=== PATIENT | female | born 1985 | race Caucasian/White ===

== ENCOUNTER 2016-10-22 18:59 | Emergency (ER) | payer OTHER ==
[2016-10-22 19:00] VITALS: BMI 35.6
[2016-10-22 19:18] VITALS: O2SAT 100
[2016-10-22] MEDS ORDERED: DiphenhydrAMINE 50 mg/ml Inj IVP STA (19:43)
--- NOTE | 2016-10-22 19:44 | C.PDOC ---
History Of Present Illness 30 year old female with a Hx of morbid obesity presents to the ER with a complaint of chest pain and headache since yesterday; associated with 1 episode of vomiting. Patient states the pain worsens with deep inspiration; denies fever , cough, abdominal pain, urinray changes. or other associated complaints. Time Seen by Provider: 10/22/16 19:35 Chief Complaint (Nursing): Chest Pain History Per: Patient History/Exam Limitations: no limitations Onset/Duration Of Symptoms: Days Current Symptoms Are (Timing): Still Present Associated Symptoms: Other (Vomiting). denies: Nausea, Dyspnea Exacerbating Factors: Deep Breathing Alleviating Factors: None Recent travel outside of the [place]: No Past Medical History Reviewed: Historical Data, Nursing Documentation, Vital Signs Vital Signs: Last Vital Signs Temp 98.9 F 10/22/16 21:25 Pulse 67 10/22/16 21:25 Resp 17 10/22/16 21:25 BP 144/79 10/22/16 21:25 Pulse Ox 100 10/22/16 21:25 - Medical History PMH: Asthma, Depression - [facility] Procedures INJECT/INFUSE NEC (05/19/14) LOW CERVICAL (09/24/12) Family History: States: Unknown Family Hx - Social History Hx Tobacco Use: No Hx Alcohol Use: No Hx Substance Use: No - Immunization History Hx Tetanus Toxoid Vaccination: No Hx Influenza Vaccination: No Hx Pneumococcal Vaccination: No Review Of Systems Constitutional: Negative for: Fever, Chills Cardiovascular: Positive for: Chest Pain. Negative for: Palpitations Respiratory: Negative for: Shortness of Breath Gastrointestinal: Positive for: Vomiting. Negative for: Abdominal Pain Neurological: Positive for: Headache Physical Exam - Physical Exam Appears: Non-toxic, No Acute Distress Skin: Normal Color, Warm, Dry Head: Atraumatic, Normacephalic Oral Mucosa: Moist Chest: Symmetrical, No Tenderness Cardiovascular: Rhythm Regular, No Murmur Respiratory: Normal Breath Sounds, No Rales, No Rhonchi, No Wheezing Gastrointestinal/Abdominal: Soft, No Tenderness Neurological/Psych: Oriented x3, Normal Speech, Normal Cognition ED Course And Treatment - Laboratory Results Result Diagrams: 10/22/16 19:52 10/22/16 19:52 ECG: Interpreted By Me, Viewed By Me ECG Rhythm: Sinus Rhythm ECG Interpretation: Normal Interpretation Of ECG: No ST/T changes Rate From EC O2 Sat by Pulse Oximetry: 100 - Radiology CXR: Interpreted by Me, Viewed By Me CXR Interpretation: Yes: No Acute Disease Medical Decision Making Medical Decision Making: Impression: 30 year old female with chest pain Plan: * EKG * Blood work * CXR * Urinalysis * Benadryl * Reglan * * 915: pt reasessed: neuro intact. cxr neg as read by me. no cough, no fever. avila resolved. pt smiling, asking for d/c. ekg unremakrable. dimer neg. stable for outpt management. advise outpt f/u and return precautions. Disposition - Disposition Referrals: Maurizio Villanueva MD [Staff Provider] - Elias Patel MD [Staff Provider] - [facility] [Outside] [facility] [Outside] [facility] [Outside] Disposition: HOME/ ROUTINE Disposition Time: 21:17 Condition: STABLE Additional Instructions: please follow up with clinic and specialists. return to er with worsening symptoms or concerns. Prescriptions: Acetaminophen/Butalbital/Caf [Fioricet] 1 tab PO Q8 PRN #20 tab PRN Reason: Headache Instructions: Chest Pain (ED), Acute Headache (ED) - Clinical Impression Clinical Impression: Chest pain, Headache - Scribe Statement The provider has reviewed the documentation as recorded by the Scribroro Mackay All medical record entries made by the Scribe were at my direction and personally dictated by me. I have reviewed the chart and agree that the record accurately reflects my personal performance of the history, physical exam, medical decision making, and the department course for this patient. I have also personally directed, reviewed, and agree with the discharge instructions and disposition.
[2016-10-22] MEDS ORDERED: DiphenhydrAMINE 50 mg/ml Inj ONE (19:54)
[2016-10-22 19:59] LABS: BASO % 0.3 % (0.0-2.0); EOS # 0.1 K/uL (0.0-0.7); EOS % 0.6 % (0.0-4.0); HEMOGLOBIN 11.7 g/dL (11.0-16.0); LYMPH # 4.2 K/uL (1.0-4.3); LYMPH % 37.2 % (20.0-40.0); MEAN CELL VOLUME 83.8 fL (81.0-99.0); MEAN CORPUSCULAR HEMOGLOBIN 27.5 pg (27.0-31.0); MEAN CORPUSCULAR HGB CONC 32.9 g/dL (33.0-37.0); MEAN PLATELET VOLUME 8.7 fL (7.2-11.7); MONO # 0.5 K/uL (0.0-0.8); MONO % 4.6 % (0.0-10.0); NEUT # 6.4 K/uL (1.8-7.0); NEUT % 57.3 % (50.0-75.0); RBC 4.25 Mil/uL (3.80-5.20); WHITE BLOOD COUNT 11.2 K/uL (4.8-10.8)
[2016-10-22 20:08] LABS: ALBUMIN 4.4 g/dL (3.5-5.0); HCG,QUALITATIVE URINE NEGATIVE (NEGATIVE)
[2016-10-22 20:11] LABS: ALB/GLOB RATIO 1.2 (1.0-2.1); AST/SGOT 21 U/L (14-36); GFR AFRICAN-AMERICAN > 60; GFR NON-AFRICAN AMERICAN > 60; SQUAMOUS EPITHIAL 11 /hpf (0-5); URINE BILIRUBIN NEGATIVE (NEGATIVE); URINE BLOOD 1+ (NEGATIVE); URINE CLARITY Hazy (Clear); URINE COLOR Yellow (YELLOW); URINE GLUCOSE (UA) NORMAL (Normal); URINE LEUKOCYTE ESTERASE NEG Leu/uL (Negative); URINE NITRATE NEGATIVE (NEGATIVE); URINE PROTEIN NEGATIVE (NEGATIVE); URINE UROBILINOGEN NORMAL mg/dL (0.2-1.0)
[2016-10-22 20:12] LABS: ALT/SGPT 20 U/L (9-52); BLOOD UREA NITROGEN 11 mg/dL (7-17); CALCIUM 9.4 mg/dl (8.6-10.4)
[2016-10-22 20:31] LABS: PARTIAL THROMBOPLASTIN TIME 33 SECONDS (21-34); PROTHROMBIN TIME 11.7 SECONDS (9.7-12.2)
[2016-10-22 20:35] LABS: D DIMER < 200 ng/mlDDU (0-243)
[2016-10-22 21:26] VITALS: BP 144/79; PULSE 67; RESP 17; TEMP 98.9
--- NOTE | 2016-10-23 07:38 | RAD ---
PROCEDURE: CHEST RADIOGRAPH, 1 VIEW HISTORY: chest pain COMPARISON: None available. FINDINGS: LUNGS: Mild venous congestion. Mild right hilar prominence. PLEURA: No pneumothorax or pleural fluid seen. CARDIOVASCULAR: Normal. OSSEOUS STRUCTURES: No significant abnormalities. VISUALIZED UPPER ABDOMEN: Normal. OTHER FINDINGS: None. IMPRESSION: Mild venous congestion.
--- NOTE | 2016-10-24 13:32 | CARD ---
APPROVED REPORT EKG Measurement Heart [id number] <Conclusion> Normal sinus rhythm Normal ECG
== END 2016-10-22 21:26 | disposition home or self-care (01) ==
LOC: C.ER 18:59
DX: R07.9 Chest pain, unspecified (principal); R51 Headache
CPT/HCPCS: 71010; 80053; 81001; 84703; 85025; 85378; 85610; 85730; 93005; 96374; 96375; 99284; J1200; J2765

== ENCOUNTER 2017-06-19 08:35 | Day surgery (SDC) | payer OTHER ==
[2017-06-19] MEDS ORDERED: Bupivacaine HCl 0.25% PF (10 ml) Inj ONE (09:59)
[2017-06-19] MEDS ORDERED: Lidocaine/Epinephrine 1% 1:100000 10 ML IJ ONE (09:59)
[2017-06-19] MEDS: ceFAZolin IV 2 gm in Dextrose 2 GM/50 ML BAG IVPB ONE ×2 (10:15→10:23)
--- NOTE | 2017-06-19 11:09 | PCM.SURG1 ---
Surgeon's Initial Post Op Note - Surgeon's Notes Surgeon: Buddy Whitlock MD Battery Stacker: RAVEN Tinoco Type of Anesthesia: General Endo Pre-Operative Diagnosis: Sebaceous cyst of back Operative Findings: Sebaceous cyst of back 2x2 cm Post-Operative Diagnosis: Sebaceous cyst of back Operation Performed: Excision of Sebaceous cyst of back 2x2 cm. Layered closure of wound 2x2 cm Specimen/Specimens Removed: Sebaceous cyst Estimated Blood Loss: EBL {In ML}: 5 Blood Products Given: N/A Drains Used: No Drains Post-Op Condition: Good Date of Surgery/Procedure: 06/19/17 Time of Surgery/Procedure: 11:09
[2017-06-19 11:37] VITALS: PULSE 89
[2017-06-19 11:54] VITALS: BP 111/66; RESP 19; TEMP 98; O2SAT 99
--- NOTE | 2017-06-19 22:12 | OP ---
PROCEDURE DATE: 06/19/2017 SURGEON: Griffin Whitlock MD NITROGLYCERIN DISTRIBUTOR: RAVEN Tinoco. PREOPERATIVE DIAGNOSES: Sebaceous cyst of the mid upper back. POSTOPERATIVE DIAGNOSES: Sebaceous cyst of the mid upper back. PROCEDURES: 1. Excision of sebaceous cyst of the mid upper back 2 x 2 cm in size. 2. Layered closure of the wound, 2 x 2 cm size. TYPE OF ANESTHESIA: Local anesthesia plus sedation. ESTIMATED BLOOD LOSS: Around 5 mL. DRAINS: None. PATHOLOGY: The sebaceous cyst was sent to the pathology. COMPLICATIONS: None. INTRAOPERATIVE FINDINGS: The patient had approximately 2 x 2 cm sebaceous cyst of the mid upper back. DESCRIPTION OF PROCEDURE: On intraoperative steps, this 31-year-old female was diagnosed with a sebaceous cyst of the mid upper back and the patient was consented for the excision of the sebaceous cyst and brought to the OR, placed on right lateral position. The back was prepped and draped in the usual sterile fashion. Local anesthesia was injected. An elliptical injection was made. Approximately 2 x 2 cm in size and upper and lower flap was created. The medial lateral dissection was done. The sebaceous cyst was completely excised from the underlying subcutaneous tissue and the fascia. Now the hemostasis was achieved. The wound was irrigated. The upper and lower flap was treated with underlying fascia and the deep subcutaneous tissue from the suture was taken and another layer of the subcutaneous and another layer of the skin with 4-0 Monocryl and dry sterile dressing was applied. The patient tolerated the procedure well. Count of the instrument and gauze was correct. There was no apparent complication. The patient was reversed from sedation in the OR, sent to the postanesthesia care unit in stable condition. Griffin Whitlock MD
== END 2017-06-19 11:49 | disposition home or self-care (01) ==
LOC: C.SDS 08:35
PROVIDERS: ATTEND Surgery Surgical Critical Care
DX: L72.3 Sebaceous cyst (principal)
CPT/HCPCS: 11402; 12031; 88305; J0690; J3010

== ENCOUNTER 2018-06-15 16:20 | Emergency (ER) | payer OTHER ==
[2018-06-15 16:20] VITALS: BMI 35.6
[2018-06-15] MEDS ORDERED: Ciprofloxacin 0.3% OPTH SOLN OU STA (16:53)
--- NOTE | 2018-06-15 17:26 | C.PDOC ---
History Of Present Illness 32 y/o female c/o pain to left eye x 4 days since dusting and getting dust into eye with contacts. pt sts she took contacts out and still feels pain and sees white speck on eye. denies visual changes. Time Seen by Provider: 06/15/18 16:27 Chief Complaint (Nursing): Eye Problem History/Exam Limitations: no limitations Onset/Duration Of Symptoms: Days (4) Current Symptoms Are (Timing): Worse Injury To Eye?: No Severity: Moderate Quality: "Pain" Associated Symptoms: Pain, FB Sensation. denies: Decreased Vision, Swelling Past Medical History Reviewed: Historical Data, Nursing Documentation, Vital Signs Vital Signs: Last Vital Signs Temp 99 F 06/15/18 16:21 Pulse 80 06/15/18 16:21 Resp 20 06/15/18 16:21 BP 131/80 06/15/18 16:21 Pulse Ox 100 06/15/18 16:21 - Medical History PMH: Asthma (NEVER HOSPITALIZED), Bronchitis (2017) - [facility] Procedures INJECT/INFUSE NEC (05/19/14) LOW CERVICAL (09/24/12) Family History: States: Unknown Family Hx - Social History Hx Tobacco Use: No Hx Alcohol Use: No Hx Substance Use: No - Immunization History Hx Tetanus Toxoid Vaccination: No Hx Influenza Vaccination: No Hx Pneumococcal Vaccination: No Review Of Systems Constitutional: Negative for: Fever, Chills Eyes: Positive for: Pain. Negative for: Vision Change, Conjunctivae Inflammation, Eyelid Inflammation Cardiovascular: Negative for: Chest Pain Respiratory: Negative for: Cough Gastrointestinal: Negative for: Abdominal Pain Skin: Negative for: Rash Neurological: Negative for: Weakness, Numbness Physical Exam - Physical Exam Appears: Non-toxic, No Acute Distress Skin: Warm, Dry Head: Atraumatic, Normacephalic Eye(s): bilateral: PERRL, EOMI, right: Normal Inspection, left: Other (minute whitish area at 3 oclock position on cornea with slight fluorecein uptake. unable to remove with qtip. ) ED Course And Treatment O2 Sat by Pulse Oximetry: 100 Medical Decision Making Medical Decision Making: discussed with Dr Orozco at approx 1645; he wants pt to get ciloxin gtt q 30 min while awake and see him in office tomorrow morning. pt understands plan. pt given bottle of clioxin while in ed. will give tdap booster as well. 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 Use one drop of Clioxin in left eye every 30 minutes while awake. Do not put contacts back into eyes. Bring eyeglasses with your to Dr Orozco tomorrow. Take Tylenol for pain. Instructions: Corneal Ulcer (DC) Forms: [facility] (Croatian), General Discharge Instructions - Clinical Impression Clinical Impression: Corneal ulcer
[2018-06-15] MEDS ORDERED: Tdap Vaccine 0.5 ml Vial (10-64 yrs) IM ONE ×2 (17:34→18:01)
[2018-06-15 17:59] VITALS: BP 125/84; PULSE 68; RESP 18; TEMP 98.1
[2018-06-18 01:28] VITALS: O2SAT 100
== END 2018-06-15 18:04 | disposition home or self-care (01) ==
LOC: C.ER 16:20
DX: H16.002 Unspecified corneal ulcer, left eye (principal); Z23 Encounter for immunization

== ENCOUNTER 2018-07-27 10:47 | Emergency (ER) | payer OTHER ==
[2018-07-27 10:53] VITALS: BMI 36.0
[2018-07-27 10:57] VITALS: O2SAT 100
--- NOTE | 2018-07-27 12:27 | C.PDOC ---
History Of Present Illness 32 y/o female pt who is x5 weeks presents to the ER c/o RUQ abdominal pain for x3 days. Pt reports pain feels better when she extends her right leg. Pt has not taken any medications. Pt denies constipation and any other asso ciated sx or complaints at this time. Time Seen by Provider: 07/27/18 12:12 Chief Complaint (Nursing): Abdominal Pain History Per: Patient History/Exam Limitations: no limitations Onset/Duration Of Symptoms: Days (x3) Current Symptoms Are (Timing): Still Present Location Of Pain/Discomfort: RUQ Past Medical History Reviewed: Historical Data, Nursing Documentation, Vital Signs Vital Signs: Last Vital Signs Temp 98.7 F 07/27/18 10:54 Pulse 92 H 07/27/18 10:54 Resp 20 07/27/18 10:54 BP 148/81 07/27/18 10:54 Pulse Ox 100 07/27/18 10:54 - Medical History PMH: Asthma (NEVER HOSPITALIZED), Bronchitis (2017) - [facility] Procedures INJECT/INFUSE NEC (05/19/14) LOW CERVICAL (09/24/12) Family History: States: Unknown Family Hx - Social History Hx Tobacco Use: No Hx Alcohol Use: No Hx Substance Use: No - Immunization History Hx Tetanus Toxoid Vaccination: No Hx Influenza Vaccination: No Hx Pneumococcal Vaccination: No Review Of Systems Except As Marked, All Systems Reviewed And Found Negative. Constitutional: Positive for: Other (x5 weeks ) Gastrointestinal: Positive for: Abdominal Pain. Negative for: Constipation Physical Exam - Physical Exam Appears: Non-toxic, In Acute Distress (mild ), Other (obese female ) Skin: Warm, Dry, No Rash Head: Normacephalic Eye(s): bilateral: PERRL, EOMI Oral Mucosa: Moist Throat: Normal Neck: Normal ROM, Supple Chest: Symmetrical Cardiovascular: Rhythm Regular Respiratory: Normal Breath Sounds, No Rales, No Rhonchi, No Wheezing Gastrointestinal/Abdominal: Soft, No Tenderness, No Distention, No Guarding, No Rebound, Other (obese; +herr sign ) Back: No CVA Tenderness Neurological/Psych: Oriented x3, Normal Speech, Normal Cognition ED Course And Treatment - Laboratory Results Result Diagrams: 07/27/18 13:11 07/27/18 13:11 Lab Interpretation: Normal Urine POC: Positive (qhcg [id number]) O2 Sat by Pulse Oximetry: 100 (RA) Pulse Ox Interpretation: Normal Reevaluation Time: 16:35 Reassessment Condition: Improved Medical Decision Making Medical Decision Making: plans: -- chem labs -- blood work -- Tylenol RUQ colic normal LFT's and GB US early preg IUP, no ectopic c/w about 6 weeks prob constipation: laxative therapy diet exercise Disposition Doctor Will See Patient In The: Office Counseled Patient/Family Regarding: Studies Performed, Diagnosis - Disposition Disposition: HOME/ ROUTINE Disposition Time: 16:36 Condition: GOOD Forms: [facility] (Namibian) - Clinical Impression Clinical Impression: Colicky RUQ abdominal pain - Scribe Statement The provider has reviewed the documentation as recorded by the Wilmeribroro Theodore Do Provider Attestation: All medical record entries made by the Scribe were at my direction and personally dictated by me. I have reviewed the chart and agree that the record accurately reflects my personal performance of the history, physical exam, medical decision making, and the department course for this patient. I have also personally directed, reviewed, and agree with the discharge instructions and disposition.
[2018-07-27] MEDS ORDERED: Sodium Chloride 0.9% 1,000 ML ONE (12:35)
[2018-07-27 13:16] LABS: HCG,QUALITATIVE URINE POSITIVE (NEGATIVE)
[2018-07-27 13:18] LABS: URINE BILIRUBIN NEGATIVE (NEGATIVE); URINE BLOOD NEGATIVE (NEGATIVE); URINE CLARITY Clear (Clear); URINE COLOR Yellow (YELLOW); URINE GLUCOSE (UA) NORMAL (Normal); URINE LEUKOCYTE ESTERASE NEG Leu/uL (Negative); URINE PROTEIN NEGATIVE (NEGATIVE); URINE UROBILINOGEN NORMAL mg/dL (0.2-1.0)
[2018-07-27 13:21] LABS: BASO % 0.4 % (0.0-2.0); EOS # 0.1 K/uL (0.0-0.7); EOS % 1.1 % (0.0-4.0); HEMOGLOBIN 11.6 g/dL (11.0-16.0); LYMPH # 3.9 K/uL (1.0-4.3); LYMPH % 41.8 % (20.0-40.0); MEAN CORPUSCULAR HEMOGLOBIN 29.5 pg (27.0-31.0); MEAN CORPUSCULAR HGB CONC 34.3 g/dL (33.0-37.0); MONO # 0.5 K/uL (0.0-0.8); MONO % 5.5 % (0.0-10.0); NEUT # 4.8 K/uL (1.8-7.0); NEUT % 51.2 % (50.0-75.0); NRBC % 0.1 % (0.0-2.0); RBC 3.93 Mil/uL (3.80-5.20); WHITE BLOOD COUNT 9.3 K/uL (4.8-10.8)
[2018-07-27 13:27] LABS: MEAN CELL VOLUME 86.2 fL (81.0-99.0)
[2018-07-27 13:29] LABS: ALB/GLOB RATIO 1.4 (1.0-2.1); ALBUMIN 4.5 g/dL (3.5-5.0); ALT/SGPT 12 U/L (9-52); AST/SGOT 21 U/L (14-36); BLOOD UREA NITROGEN 6 mg/dL (7-17); CALCIUM 9.7 mg/dl (8.6-10.4); GFR NON-AFRICAN AMERICAN > 60; LIPASE 82 U/L (23-300)
--- NOTE | 2018-07-27 16:17 | US ---
Date of service: 07/27/2018 HISTORY: RUQ colic COMPARISON: None. TECHNIQUE: Grayscale imaging was performed. FINDINGS: LIVER: Measures 19.9 cm in length. There is diffuse increased echogenicity of the liver parenchyma. No mass. No intrahepatic bile duct dilatation. GALLBLADDER: There are no gallstones, wall thickening or pericholecystic fluid. The sonographic Austin's sign is negative. COMMON BILE DUCT: Measures 5.7 mm. No stones. No dilatation. PANCREAS: Unremarkable as visualized. No mass. No ductal dilatation. RIGHT KIDNEY: Measures 11.2 cm in length. Normal echogenicity. No calculus, mass, or hydronephrosis. AORTA: No aneurysmal dilatation. IVC: Unremarkable. OTHER FINDINGS: None . IMPRESSION: 1. Mild hepatomegaly. Fatty liver. 2. No cholelithiasis or biliary dilatation.
[2018-07-27] MEDS ORDERED: Magnesium Citrate Oral SOL (300 ml) PO ONE (16:36)
--- NOTE | 2018-07-27 16:41 | US ---
Date of service: 07/27/2018 PROCEDURE: OB Pelvic Ultrasound HISTORY: 5 wks, preg, RUQ pain, ? GB COMPARISON: None available. FINDINGS: UTERUS: Single Live intrauterine gestation. Yolk sac is visualized. CRL measures 0.53 cm corresponding to 6 weeks and 2 days of gestational age. Gestational sac diameter measures 1.10 cm equivalent to 5 weeks and 1 day of gestational age. age (Ultrasound estimated): 5 weeks and 5 days Date of delivery (Ultrasound estimated) : 03/24/2019 Heart rate: 130 bpm. Brielle-gestational hemorrhage: None. Uterus measures 10.2 x 6.5 x 6.3 cm. No mass CERVIX: Long and closed. No cervical abnormality seen. RIGHT OVARY: Measures 3.2 x 2.5 x 3.2 cm. No mass. Normal flow. There is a 2.2 x 1.9 x 1.9 cm corpus luteum cyst. LEFT OVARY: Measures 3.2 x 1.8 x 2.4 cm. No mass. Normal flow. FREE FLUID: None. OTHER FINDINGS: None. IMPRESSION: Single live intrauterine gestation with mean gestational age of 5 weeks and 5 days. The estimated date of delivery by ultrasound is 03/24/2019. The ultrasound dates correspond with the clinical dates.
[2018-07-27 17:26] VITALS: BP 130/80; PULSE 82; RESP 16; TEMP 99.2
[2018-07-27] MEDS ORDERED: Magnesium Citrate Oral SOL (300 ml) ONE (17:28)
== END 2018-07-27 17:26 | disposition home or self-care (01) ==
LOC: C.ER 10:47
DX: O26.891 Other specified pregnancy related conditions, first trimester (principal); R10.11 Right upper quadrant pain; Z3A.01 Less than 8 weeks gestation of pregnancy